=== PATIENT | female | born 2000 | race American Indian/Alaskan Native ===

== ENCOUNTER 2022-02-25 21:55 | Emergency (ER) | payer SELFPAY ==
[2022-02-25 22:30] VITALS: BP 114/51
[2022-02-25 23:41] LABS: Bilirubin,Urine NEG (Negative); Blood,Urine NEG (Negative); Color,Urine Amber (Yellow); Mucus,Urine 3+ /HPF
== END 2022-02-25 23:28 | disposition left against medical advice (07) ==
LOC: ED 21:55
DX: R10.2 Pelvic and perineal pain (principal); Z53.21 Procedure and treatment not carried out due to patient leaving prior to being seen by health care provider
CPT/HCPCS: 81001